=== PATIENT | male | born 1965 | race Caucasian/White ===

== ENCOUNTER 2021-06-06 05:48 | Inpatient (IN) | payer OTHER ==
[~2021-06-06] VITALS: Ht 177.8 cm; Wt 100.0 kg
[2021-06-06] MEDS ORDERED: PLEASE ENTER ALLERGIES MC SCH (06:30)
[2021-06-06] MEDS ORDERED: HYDROmorphone 1 MG/ML, 1ML INJ IV ONE (06:30)
[2021-06-06] MEDS ORDERED: ONDANSETRON 2MG/ML, 2ML IVPush ONE (06:30)
[2021-06-06] MEDS ORDERED: HYDROmorphone 2 MG/ML, 1ML ONE (06:36)
[2021-06-06] MEDS ORDERED: ONDANSETRON 2MG/ML, 2ML ONE (06:36)
--- NOTE | 2021-06-06 06:52 | NUR ---
REPORT TO FRANCOIS SUN NO FURTHER QUESTIONS.
--- NOTE | 2021-06-06 06:56 | NUR ---
First contact with patient, report from FRANCOIS khan. Rapid Covid collected and walked to lab. Pt aware of NPO status, says he had 2 bottles of water at 130am but threw it up. Reports adequate pain control, vss. AIDET provided.
[2021-06-06] MEDS ORDERED: SODIUM CHLORIDE FLUSH 10ML SYR IVF PRN (07:00)
[2021-06-06] MEDS ORDERED: glipizide (07:07)
[2021-06-06] MEDS ORDERED: blood pressure med (07:07)
[2021-06-06] MEDS ORDERED: meloxicam (07:07)
[2021-06-06] MEDS ORDERED: metformin (07:07)
[2021-06-06] MEDS ORDERED: vitamins (07:07)
[2021-06-06] MEDS ORDERED: morphine SULFATE 10 MG/ML, 1ML IVPush PRN (07:30)
[2021-06-06] MEDS ORDERED: ENALAPRILAT 1.25 MG/ML, 2ML IVPush PRN (07:30)
[2021-06-06] MEDS ORDERED: MELATONIN 5 MG TABLET PO PRN (07:30)
[2021-06-06] MEDS ORDERED: ONDANSETRON 2MG/ML, 2ML IVPush PRN ×2 (07:30→15:30)
[2021-06-06 08:25] VITALS: BP 156/90
[2021-06-06] MEDS ORDERED: PIPERACILLIN/TAZO 3.375 GM in DEXTROSE 5% 50 ML IVPB ONE (08:30)
[2021-06-06] MEDS ORDERED: CHLORHEXIDINE 15 ML UDC ONE (09:26)
[2021-06-06 09:35] LABS: BASOPHILS % (AUTO) 1 % (0-1); EOSINOPHILS % (AUTO) 2 % (1-7); LYMPHOCYTES % (AUTO) 21 % (22-44); MEAN CORPUSCULAR HEMOGLOBIN 34.8 pg (27.5-34.5); MEAN CORPUSCULAR HGB CONC 35.8 g/dL (33.2-36.2); MEAN PLATELET VOLUME 6.8 fL (7.4-10.4); MONOCYTES % (AUTO) 13 % (2-9); NEUTROPHILS % (AUTO) 63 % (42-75); PLATELET COUNT 150 x10^3/uL (130-400); RED CELL DISTRIBUTION WIDTH 14.2 % (9.4-14.8)
[2021-06-06 09:38] LABS: CHLORIDE 106 mmol/L (98-107)
[2021-06-06 09:44] LABS: ALANINE AMINOTRANSFERASE 79 U/L (12-78); ALBUMIN 3.3 g/dL (3.4-5.0); ALKALINE PHOSPHATASE 62 U/L (45-117); ANION GAP 6 mmol/L (5-15); BILIRUBIN,TOTAL 0.5 mg/dL (0.2-1.0); CALCIUM 10.1 mg/dL (8.5-10.1); CREATININE 1.01 mg/dL (0.7-1.3); TOTAL PROTEIN 6.5 g/dL (6.4-8.2)
[2021-06-06] MEDS: INSULIN LISPRO 100 UNITS/ML, PEN SQ-INSULIN SCH ×3 (11:13→20:32)
[2021-06-06] MEDS ORDERED: GLUCAGON 1 MG IM PRN (12:30)
[2021-06-06] MEDS ORDERED: DEXTROSE 4 GM TAB.CHEW PO PRN (12:30)
[2021-06-06] MEDS ORDERED: DEXTROSE 50%, 50ML SYRINGE IVPush PRN (12:30)
[2021-06-06] MEDS: SODIUM CHLORIDE 0.9% 1,000 ML IV SCH ×2 (13:25→17:52)
[2021-06-06] MEDS ORDERED: LABETALOL 5MG/ML, 20ML IV PRN (15:30)
[2021-06-06] MEDS ORDERED: HYDROmorphone 1 MG/ML, 1ML INJ IV PRN (15:30)
[2021-06-06] MEDS ORDERED: KETOROLAC 30 MG/1 ML IV PRN (15:30)
[2021-06-06] MEDS ORDERED: PROMETHAZINE 25 MG/ML, 1ML IV PRN (15:30)
[2021-06-06] MEDS ORDERED: ALBUTEROL SULFATE 2.5 MG/3 ML NPPB PRN (15:30)
[2021-06-06] MEDS ORDERED: OXYcodone 5 MG/5 ML ORAL.SOL UDC PO PRN (15:30)
[2021-06-06] MEDS ORDERED: MEPERIDINE/PF 25MG/0.5ML IVPush PRN (15:30)
[2021-06-06] MEDS ORDERED: DIAZEPAM 5 MG/ML, 2ML IV PRN ×2 (15:30)
[2021-06-06] MEDS ORDERED: hydrALAzine 20 MG/ML, 1ML IV PRN (15:30)
[2021-06-06] MEDS ORDERED: FENTANYL PF 100 MCG/2ML IV PRN (15:30)
[2021-06-06] MEDS ORDERED: METOCLOPRAMIDE 5 MG/ML, 2ML IV PRN (15:30)
[2021-06-06] MEDS ORDERED: PHENAZOPYRIDINE 200 MG TABLET PO ONE (16:00)
[2021-06-06] MEDS ORDERED: PHENAZOPYRIDINE 200 MG TABLET ONE (16:09)
[2021-06-06 18:15] VITALS: BP 141/86
[2021-06-06] MEDS: HYDROcodone/APAP 5/325 TABLET PO PRN (18:21)
[2021-06-06] MEDS ORDERED: KETOROLAC 10MG TABLET PO PRN (18:30)
[2021-06-06 20:01] VITALS: BP 122/82
[2021-06-06] MEDS: SODIUM CHLORIDE FLUSH 10ML SYR IVF SCH (20:32)
[2021-06-07 00:32] VITALS: BP 146/86
[2021-06-07] MEDS: HYDROcodone/APAP 5/325 TABLET PO PRN ×3 (01:31→13:25)
[2021-06-07 05:34] LABS: CALCIUM 10.2 mg/dL (8.5-10.1); CHLORIDE 109 mmol/L (98-107)
[2021-06-07 05:39] LABS: BASOPHILS % (AUTO) 1 % (0-1); EOSINOPHILS % (AUTO) 4 % (1-7); LYMPHOCYTES % (AUTO) 18 % (22-44); MEAN CORPUSCULAR HEMOGLOBIN 34.3 pg (27.5-34.5); MEAN CORPUSCULAR HGB CONC 35.1 g/dL (33.2-36.2); MEAN PLATELET VOLUME 6.8 fL (7.4-10.4); MONOCYTES % (AUTO) 14 % (2-9); NEUTROPHILS % (AUTO) 64 % (42-75); PLATELET COUNT 140 x10^3/uL (130-400); RED CELL DISTRIBUTION WIDTH 13.8 % (9.4-14.8)
[2021-06-07 05:40] LABS: ALANINE AMINOTRANSFERASE 77 U/L (12-78); ALKALINE PHOSPHATASE 60 U/L (45-117); ANION GAP 3 mmol/L (5-15); BILIRUBIN,TOTAL 0.5 mg/dL (0.2-1.0); CREATININE 0.97 mg/dL (0.7-1.3); TOTAL PROTEIN 6.2 g/dL (6.4-8.2)
[2021-06-07] MEDS: INSULIN LISPRO 100 UNITS/ML, PEN SQ-INSULIN SCH ×2 (08:49→12:03)
[2021-06-07] MEDS: PHENAZOPYRIDINE 200 MG TABLET PO SCH ×2 (08:49→13:25)
[2021-06-07] MEDS: SODIUM CHLORIDE 0.9% 1,000 ML IV SCH (08:50)
[2021-06-07] MEDS: SODIUM CHLORIDE FLUSH 10ML SYR IVF SCH (08:50)
== END 2021-06-07 14:19 | disposition home or self-care (01) | DRG 670 ==
LOC: ED 06:00 → 3N 07:22
PROVIDERS: ADMIT Hospitalist; ATTEND Hospitalist
PROC: 0TC68ZZ Extirpation of Matter from Right Ureter, Via Natural or Artificial Opening Endoscopic (ICD-10-PCS; principal; 2021-06-06 14:00)
DX: N13.2 Hydronephrosis with renal and ureteral calculous obstruction (principal); D86.9 Sarcoidosis, unspecified; E11.9 Type 2 diabetes mellitus without complications; M10.9 Gout, unspecified; K57.90 Diverticulosis of intestine, part unspecified, without perforation or abscess without bleeding; Z20.822 Contact with and (suspected) exposure to COVID-19; E78.5 Hyperlipidemia, unspecified; Z98.1 Arthrodesis status
CPT/HCPCS: 36415; 80053; 82360; 82962; 83735; 84100; 85025; 87635; 88300; 96374; 96375; 99285; G0378; J1170; J2405; C1769; J1815; J2270; J7030